=== PATIENT | male | born 1975 | race Caucasian/White ===

== ENCOUNTER 2017-12-05 17:22 | Emergency (ER) | payer SELFPAY ==
[2017-12-05] MEDS ORDERED: IBUPROFEN 400 MG TABLET PO ONE (18:15)
--- NOTE | 2017-12-05 18:18 | Emergency Department Record ---
History of Present Illness - General Chief complaint: Flu Like Symptoms Stated complaint: FLU Time Seen by Provider: 12/05/17 18:10 Source: Patient Mode of Arrival: Ambulatory Limitations: No limitations - History of Present Illness Initial comments: 42 yo male presents to ED of revaluation of fevers, runny nose, myalgias, and non-productive cough symptoms for the past 4 days. Patient reports intermittently taking Tylenol and Ibuprofen for his symptoms with some improvement. Patient denies any know recent ill contacts, denies health problems at his baseline. MD Complaint: Generalized weakness Onset/Timin -: Days(s) Severity: Mild Severity scale (1-10): 9 Quality: Aching Consistency: Intermittent Improves with: Rest Worsens with: Other Associated Symptoms: Fever/chills, Headaches - [place] Coma Scale Eye Response: (4) Open spontaneously Motor Response: (6) Obeys commands Verbal Response: (5) Oriented Amarjit Total: 15 - Related Data Previous Rx's Medication Instructions Recorded Oseltamivir Phosphate [Tamiflu] 75 mg PO BID #10 capsule 12/05/17 Allergies Allergy/AdvReac Type Severity Reaction Status Date / Time No Known Drug Allergies Allergy Verified 12/05/17 17:46 Travel Screening - Travel/Exposure Within Last 30 Days Have you traveled within the last 30 days?: No Review of Systems Constitutional: Reports: Chills, Fever, Malaise. Denies: Night sweats Eyes: Reports: Eye discharge. Denies: Photophobia ENT: Reports: Congestion. Denies: Ear pain, Epistaxis Respiratory: Reports: Cough. Denies: Dyspnea Cardiovascular: Denies: Chest pain, Dyspnea on exertion Endocrine: Reports: Fatigue. Denies: Heat or cold intolerance Gastrointestinal: Denies: Nausea, Vomiting Genitourinary: Denies: Incontinence, Retention Musculoskeletal: Reports: Back pain, Myalgia. Denies: Arthralgia Skin: Denies: Bruising, Change in color Neurological: Reports: Headache. Denies: Abnormal gait, Confusion Psychiatric: Denies: Anxiety Hematological/Lymphatic: Denies: Anemia, Blood Clots Past Medical History - SOCIAL HISTORY Smoking Status: Never smoker Alcohol Use: Occasional Drug Use: None - RESPIRATORY Hx Respiratory Disorders: No - CARDIOVASCULAR Hx Cardio Disorders: No - NEURO Hx Neuro Disorders: No - GI Hx GI Disorders: No - Hx Genitourinary Disorders: No - ENDOCRINE Hx Endocrine Disorders: No - MUSCULOSKELETAL Hx Musculoskeletal Disorders: No - PSYCH Hx Psych Problems: No - HEMATOLOGY/ONCOLOGY Hx Hematology/Oncology Disorders: No Family Medical History Any Significant Family History?: Yes Hx Heart Disease: Mother Hx HTN: Father, Mother Physical Exam - General General Appearance: Alert, Oriented x3, Cooperative, Moderate distress Limitations: No limitations - Head Head exam: Atraumatic, Normocephalic, Normal inspection Head exam detail: negative: Abrasion, Contusion, Miller's sign, General tenderness, Hematoma, Laceration - Eye Eye exam: Normal appearance, Conjunctival injection. negative: Periorbital swelling, Periorbital tenderness, Scleral icterus - ENT Ear exam: negative: Auricular hematoma, Auricular trauma Mouth exam: negative: Drooling, Laceration, Muffled voice, Tongue elevation Throat exam: negative: Tonsillar erythema, Tonsillomegaly, R peritonsillar mass , L peritonsillar mass - Neck Neck exam: Normal inspection. negative: Meningismus, Tenderness - Respiratory Respiratory exam: Normal lung sounds bilaterally. negative: Respiratory distress, Rhonchi, Stridor, Wheezes - Cardiovascular Cardiovascular Exam: Regular rate, Normal rhythm, Normal heart sounds - GI/Abdominal GI/Abdominal exam: Soft. negative: Rebound, Rigid, Tenderness - Rectal Rectal exam: Deferred - exam: Deferred - Extremities Extremities exam: Normal inspection. negative: Calf tenderness, Pedal edema, Tenderness - Back Back exam: Denies: CVA tenderness (R), CVA tenderness (L) - Neurological Neurological exam: Alert, Normal gait, Oriented X3 - Psychiatric Psychiatric exam: Normal affect, Normal mood - Skin Skin exam: Normal color. negative: Abrasion Type of lesion: negative: abrasion Course Vital Signs 12/05/17 17:44 Temperature 100.1 F H Pulse Rate [ 95 H Pulse Ox Probe] Respiratory 20 Rate Blood Pressure 181/109 [Left Arm] Pulse Ox 96 - Reevaluation(s) Reevaluation #1: 12/05/17 18:42 Patient is positive for influenza A, will initiate Tamiflu at this time. Patient was counseled re: influenza and symptomatic care at home, appears stable for discharge with outpatient treatment for influenza. Patient was also counseled re: follow-up for elevated blood pressure in 5-7 days as directed as well. Disposition Disposition: Discharge Clinical Impression: Influenza A Disposition: Home, Self-Care Condition: (2) Stable Instructions: Influenza (ED) Additional Instructions: Return to ED if your symptoms worsen or if you have any concerns. Tamiflu as directed. Tylenol/Motrin as needed for fever/body aches. Follow-up with your family doctor in 3-5 days as directed. Prescriptions: Oseltamivir Phosphate [Tamiflu] 75 mg PO BID #10 capsule Forms: Patient Portal Access Time of Disposition: 18:44 Quality - Quality Measures Quality Measures: N/A - Blood Pressure Screening Does Patient Have Any of the Following: Active Dx of HTN Blood Pressure Classification: Hypertensive Reading Systolic Measurement: 172 Diastolic Measurement: 113 Screening for High Blood Pressure: Patient Exclusion, Hx of HTN [G9744]
[2017-12-05 18:34] LABS: INFLUENZA A POSITIVE (NEGATIVE); INFLUENZA B NEGATIVE (NEGATIVE)
[2017-12-05] MEDS ORDERED: OSTELTAMIVIR 75 MG CAP PO ONE (18:44)
== END 2017-12-05 19:02 | disposition home or self-care (01) ==
LOC: ER 17:22
DX: J10.1 Influenza due to other identified influenza virus with other respiratory manifestations (principal); R03.0 Elevated blood-pressure reading, without diagnosis of hypertension; R53.1 Weakness
CPT/HCPCS: 87400; 99282

== ENCOUNTER 2018-01-25 05:00 | Emergency (ER) | payer SELFPAY ==
[2018-01-25] MEDS ORDERED: HYDROCODONE/APAP 7.5/325MG TABLET PO ONE (05:06)
[2018-01-25] MEDS ORDERED: CYCLOBENZAPRINE 10MG TABLET PO ONE (05:06)
[2018-01-25] MEDS ORDERED: METHYLPREDNISOLONE 80MG/VIAL IM ONE (05:06)
--- NOTE | 2018-01-25 05:13 | Emergency Department Record ---
History of Present Illness - General Stated complaint: R HIP PAIN Time Seen by Provider: 01/25/18 05:06 Source: Patient, Family Mode of Arrival: Ambulatory Limitations: No limitations - History of Present Illness Initial comments: 42 yo male presents with right hip pain for 2 days. He states the pain is sharp and radiates to the knee. It is sharp. It is worse with movements and weight bearing. He states he did yard work on and initially developed lumbar pain that know is in the right hip with occasional radiation to the knee. No falls. No swelling. No rash. No fevers or chills. No prior right hip disease. No current PCP but he has his first appointment in 1.5 weeks with a new doctor in the [facility]. He normally gets up at this hour for work but the pain was too severe. No weakness or numbness. MD Complaint: Joint pain -: Days(s) (2) Location: Right, Other (hip) History of Same: No -: Yes Arthralgia Radiation: Proximal Quality: Aching Consistency: Constant Improves with: Immobilization Worsens with: Palpation, Walking Associated Symptoms: Denies other symptoms - Related Data Home Medications Medication Instructions Recorded Confirmed Last Taken Amoxicillin 500 mg PO TID 01/25/18 01/25/18 Unknown Previous Rx's Medication Instructions Recorded Cyclobenzaprine HCl [Flexeril] 10 mg PO TID #20 tablet 01/25/18 Hydrochlorothiazide [Hctz] 25 mg PO DAILY #14 tablet 01/25/18 Hydrocodone/Acetaminophen [[place] 1 each PO Q8H #9 tablet 01/25/18 5-325 Tablet] Allergies Allergy/AdvReac Type Severity Reaction Status Date / Time No Known Drug Allergies Allergy Verified 12/05/17 17:46 Review of Systems Constitutional: Denies: Chills, Fever, Malaise, Weakness Eyes: Denies: Eye discharge, Eye pain ENT: Denies: Congestion, Throat pain Respiratory: Denies: Cough Cardiovascular: Denies: Chest pain, Syncope Endocrine: Denies: Fatigue Gastrointestinal: Denies: Abdominal pain, Diarrhea, Nausea, Vomiting Genitourinary: Denies: Dysuria, Frequency, Hematuria Musculoskeletal: Reports: As per HPI, Arthralgia, Back pain, Myalgia. Denies: Joint swelling, Neck pain Skin: Denies: Bruising, Change in color, Rash Neurological: Denies: Abnormal gait, Headache, Numbness, Tingling, Weakness Psychiatric: Denies: Anxiety Hematological/Lymphatic: Denies: Easy bleeding, Easy bruising, Swollen glands Past Medical History - SOCIAL HISTORY Smoking Status: Never smoker Drug Use: None - RESPIRATORY Hx Respiratory Disorders: No - CARDIOVASCULAR Hx Cardio Disorders: No - NEURO Hx Neuro Disorders: No - GI Hx GI Disorders: No - Hx Genitourinary Disorders: No - ENDOCRINE Hx Endocrine Disorders: No - MUSCULOSKELETAL Hx Musculoskeletal Disorders: No - PSYCH Hx Psych Problems: No - HEMATOLOGY/ONCOLOGY Hx Hematology/Oncology Disorders: No Family Medical History Hx Heart Disease: Mother Hx HTN: Father, Mother Physical Exam - General General Appearance: Alert, Oriented x3, Cooperative, No acute distress Limitations: No limitations - Head Head exam: Normal inspection - Eye Eye exam: Normal appearance. negative: Conjunctival injection, Scleral icterus - ENT ENT exam: Normal exam Ear exam: Normal external inspection Nasal Exam: Normal inspection Mouth exam: Normal external inspection - Neck Neck exam: Normal inspection, Full ROM. negative: Tenderness - Respiratory Respiratory exam: Normal lung sounds bilaterally. negative: Respiratory distress - Cardiovascular Cardiovascular Exam: Regular rate, Normal rhythm, Normal heart sounds - GI/Abdominal GI/Abdominal exam: Soft, Normal bowel sounds. negative: Pulsatile mass ( abdoomen is obese but very soft and non tender), Tenderness - Rectal Rectal exam: Deferred - exam: Deferred - Extremities Extremities exam: Normal inspection, Full ROM, Normal capillary refill, Tenderness (tenderness to the lateral hip and glutteal area on the right, no pain with log roll of the hip. He has nearly full hip flexion before pain, pain with external rotation), Other. negative: Calf tenderness, Pedal edema - Back Back exam: Reports: Normal inspection, Full ROM, Tenderness, Vertebral tenderness. Denies: CVA tenderness (R), CVA tenderness (L), Muscle spasm, Paraspinal tenderness - Neurological Neurological exam: Alert, Normal gait, Oriented X3, Reflexes normal. negative: Abnormal gait, Altered, Motor sensory deficit - Psychiatric Psychiatric exam: Normal affect, Normal mood - Skin Skin exam: Dry, Intact, Normal color, Warm Course - Reevaluation(s) Reevaluation #1: The examination is consistent with musculo skeletal. The patient is comfortable if still and certain maneuvers reproduce the pain ( external rotation, hip flexion) 01/25/18 05:16 XR ordered for the right hip pain 01/25/18 05:37 The XR was reviewed. Mild joint space narrowing. No fracture. The patient reports he has not been on BP medication for about 3 years. He does not recall his prior medications He will be placed on HCTZ for 10 days until seen for his first appointment with [facility]. He is asymptomatic regarding his HTN. He was diagnosed many years ago but has not been compliant with medications 01/25/18 05:43 We discussed his BP and starting medication for the 10 days until followup Off work today to rest the sore right hip 01/25/18 06:00 Disposition Disposition: Discharge Clinical Impression: Right hip pain, SI joint arthritis, Hypertension Disposition: Home, Self-Care Condition: (1) Good Instructions: Hip Sprain (ED), Hypertension (ED) Additional Instructions: Follow up with [facility] as scheduled on the or be seen sooner if worse or any new concerns Take the blood pressure medication until your appointment with your new family doctor Prescriptions: Cyclobenzaprine HCl [Flexeril] 10 mg PO TID #20 tablet Hydrochlorothiazide [Hctz] 25 mg PO DAILY #14 tablet Hydrocodone/Acetaminophen [[place] 5-325 Tablet] 1 each PO Q8H #9 tablet Forms: Patient Portal Access Time of Disposition: 05:40 Quality - Quality Measures Quality Measures: N/A - Blood Pressure Screening Does Patient Have Any of the Following: Active Dx of HTN Blood Pressure Classification: Hypertensive Reading Systolic Measurement: 185 Diastolic Measurement: 114 Screening for High Blood Pressure: Patient Exclusion, Hx of HTN [G9744]
--- NOTE | 2018-01-25 10:40 | RADIOLOGY REPORT ---
EXAM: RIGHT HIP WITH AP PELVIS HISTORY: RIGHT HIP PAIN STARTING TWO DAYS AGO WHILE RAKING LEAVES. TECHNIQUE: An AP view of the pelvis and AP and lateral views of the right hip were obtained. Comparison: None. FINDINGS: The right hip appears intact with no fracture or dislocation seen. The joint space appears maintained. No destructive lesion identified. IMPRESSION: THE RIGHT HIP APPEARS NEGATIVE. JOB NUMBER: [id number] MTDD
== END 2018-01-25 05:58 | disposition home or self-care (01) ==
LOC: ER 05:00
DX: M47.898 Other spondylosis, sacral and sacrococcygeal region (principal); M25.551 Pain in right hip; M25.561 Pain in right knee; I10 Essential (primary) hypertension
CPT/HCPCS: 96372; 99283; 99284; J1040

== ENCOUNTER 2018-01-26 11:22 | Emergency (ER) | payer SELFPAY ==
[2018-01-26] MEDS ORDERED: ORPHENADRINE CITRATE 60MG/2ML VIAL IM ONE (11:45)
--- NOTE | 2018-01-26 11:49 | Emergency Department Record ---
History of Present Illness - General Chief complaint: Extremity Problem Stated complaint: PAIN AND NUMBNESS FROM HIP TO FOOT Time Seen by Provider: 01/26/18 11:26 Source: Patient Mode of Arrival: Ambulatory Limitations: No limitations - History of Present Illness Initial comments: The patient is here due to worsening of his R hip and back pain. The onset was 3 days ago. The pain originally started at the posterior R hip near the SI joint and travelled to his R knee. The patient was seen in the ER yesterday for it and started on pain medicines. Now for the last 24 hours or so the pain is traveling down the R leg to the foot and he is having mild numbness to the anterior R lower leg. He denies any weakness to his legs and has had no bowel or bladder issues. The patient also denies any OGDEN, CP, SOB, or MAGO. MD Complaint: Other Onset/Timin -: Days(s) Location: Left, Lower Leg Radiation: Distal Severity scale (1-10): 10 Quality: Aching, Crushing Associated Symptoms: Denies other symptoms - Related Data Previous Rx's Medication Instructions Recorded Cyclobenzaprine HCl [Flexeril] 10 mg PO TID #20 tablet 01/25/18 Hydrochlorothiazide [Hctz] 25 mg PO DAILY #14 tablet 01/25/18 Hydrocodone/Acetaminophen [[place] 1 each PO Q8H #9 tablet 01/25/18 5-325 Tablet] Naproxen [Naprosyn] 500 mg PO BID #14 tablet. 01/26/18 Allergies Allergy/AdvReac Type Severity Reaction Status Date / Time No Known Drug Allergies Allergy Verified 01/26/18 11:36 Travel Screening - Travel/Exposure Within Last 30 Days Have you traveled within the last 30 days?: No - Travel/Exposure Within Last Year Have you traveled outside the [place] in the last year?: No - Additonal Travel Details Have you been exposed to anyone with a communicable illness?: No - Travel Symptoms Symptom Screening: None Review of Systems Constitutional: Denies: Chills, Fever Eyes: Denies: Eye discharge ENT: Denies: Congestion Respiratory: Denies: Cough, Dyspnea Past Medical History - SOCIAL HISTORY Smoking Status: Never smoker Alcohol Use: None Drug Use: None - RESPIRATORY Hx Respiratory Disorders: No - CARDIOVASCULAR Hx Cardio Disorders: No Hx Hypertension: Yes - NEURO Hx Neuro Disorders: No - GI Hx GI Disorders: No - Hx Genitourinary Disorders: No - ENDOCRINE Hx Endocrine Disorders: No - MUSCULOSKELETAL Hx Musculoskeletal Disorders: No - PSYCH Hx Psych Problems: No - HEMATOLOGY/ONCOLOGY Hx Hematology/Oncology Disorders: No Family Medical History Any Significant Family History?: Yes Hx Heart Disease: Mother Hx HTN: Father, Mother Physical Exam - General General Appearance: Alert, Oriented x3, Cooperative, No acute distress - Head Head exam: Atraumatic, Normocephalic, Normal inspection - Eye Eye exam: Normal appearance, PERRL - Neck Neck exam: Normal inspection, Full ROM. negative: Tenderness - Respiratory Respiratory exam: Normal lung sounds bilaterally. negative: Respiratory distress - Cardiovascular Cardiovascular Exam: Regular rate, Normal rhythm, Normal heart sounds - GI/Abdominal GI/Abdominal exam: Soft, Normal bowel sounds. negative: Tenderness - Rectal Rectal exam: Normal rectal tone - Extremities Extremities exam: Normal inspection, Full ROM, Normal capillary refill, Other ( Neg SLR bilaterally.). negative: Tenderness - Neurological Neurological exam: Abnormal gait (The patient is able to walk but is limping mildly on the R leg due to pain.), Alert, Motor sensory deficit (The motor exam is 5/5 and equal to the bilateral lower legs but the sensory exam is decreased to the anteror R lower leg only. The patient is able to get up and walk on his toes and stand on his heels.), Oriented X3, Reflexes normal (The patellar and achilles reflexes are 2+ and equal bilaterally.). negative: Normal gait Course Vital Signs 01/26/18 11:30 Temperature 97.8 F Pulse Rate 92 H Respiratory 20 Rate Blood Pressure 189/120 Pulse Ox 97 - Reevaluation(s) Reevaluation #1: The patient is doing better at this time. He is still having pain but it is much improved along with his BP. He is up walking easily with no limping or leg weakness. I did discuss the lab results and the need for further evaluation by his PCP. 01/26/18 13:55 Medical Decision Making - Data Complexity MDM Data: Labs Ordered and/or Reviewed, X-Ray Ordered and/or Reviewed - Lab Data Result diagrams: 01/26/18 12:00 01/26/18 12:00 - Radiology Data Radiology results: Report reviewed (Lumbar Spine: DJD but no acute changes.) Disposition Disposition: Discharge Clinical Impression: Back pain Qualifiers: Back pain location: back pain in unspecified location Chronicity: acute Back pain laterality: right Qualified Code(s): M54.9 - Dorsalgia, unspecified Disposition: Home, Self-Care Condition: (2) Stable Instructions: Acute Low Back Pain (ED) Additional Instructions: Please continue your present medicines and add the Naprosyn for pain. Please see your PCP next week as planned and return to the ER for any worsening pain, leg weakness, worsening numbness, or ANY bowel or bladder incontinence or inability to go. Prescriptions: Naproxen [Naprosyn] 500 mg PO BID #14 tablet.dr Forms: Patient Portal Access Time of Disposition: 14:00 Quality - Quality Measures Quality Measures: N/A - Blood Pressure Screening View Details: Yes Does Patient Have Any of the Following: Active Dx of HTN Blood Pressure Classification: Hypertensive Reading Systolic Measurement: 189 Diastolic Measurement: 120 Screening for High Blood Pressure: Patient Exclusion, Hx of HTN [G9744]
[2018-01-26 12:16] LABS: BASO % 0.4 % (0-6); EOS % 0.7 % (0-6); GRAN % 71.5 % (47-80); HEMATOCRIT 47.9 % (42.0-52.0); HEMOGLOBIN 16.1 gm/dl (14.0-18.0); LYMPH % 19.4 % (16-45); MEAN CELL VOLUME 91.1 fl (81-97); MEAN CORPUSCULAR HEMOGLOBIN 30.6 pg (27-33); MEAN CORPUSCULAR HGB CONC 33.6 g/dl (32-36); MEAN PLATELET VOLUME 9.2 fl (7.4-10.4); PLATELET COUNT 386 K/uL (130-400); RED BLOOD COUNT 5.26 M/uL (4.40-5.70); RED CELL DISTRIBUTION WIDTH 12.6 % (11.5-14.5); WHITE BLOOD COUNT W/O DIFF 9.4 K/uL (4.2-12.2)
[2018-01-26 12:30] LABS: BLOOD UREA NITROGEN 22 mg/dL (6-20); CREATININE 0.8 mg/dL (0.7-1.2); EST GLOMERULAR FILTRATION RATE > 60 mL/min
[2018-01-26 12:32] LABS: GLUCOSE,RANDOM 122 mg/dL (74-109)
[2018-01-26] MEDS ORDERED: KETOROLAC 30 MG/ML VIAL IM ONE (12:36)
[2018-01-26] MEDS ORDERED: ONDANSETRON 4 MG ODT TABLET SL ONE (13:05)
[2018-01-26] MEDS ORDERED: MORPHINE SULFATE 5 MG/ML PFS IM ONE (13:05)
--- NOTE | 2018-01-27 10:45 | RADIOLOGY REPORT ---
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 TECHNIQUE: AP, translumbar lateral, and lumbosacral lateral views for a total of three views of the lumbar spine were obtained. Comparison: None. Encounter: Initial. FINDINGS: Very slight tilting of the lumbar spine to the left which may simply be due to positioning or spasm. Slight narrowing of the fourth and fifth lumbar interspaces with associated hypertrophic spurring. Mild spurring elsewhere in the lumbar spine as well. No fracture of the lumbar spine identified. Mild distention of a single small bowel loop in the left mid abdomen laterally may represent a mild ileus. If there are persistent abdominal symptoms, a follow-up complete abdomen series may be useful to assess for progressive small bowel distention or air fluid level/free air. IMPRESSION: 1. MILD TILTING OF THE LUMBAR SPINE TO THE LEFT. 2. MILD NARROWING OF THE LOWER TWO LUMBAR INTERSPACES WITH MILD SPURRING SCATTERED THROUGHOUT THE LUMBAR SPINE. 3. SINGLE MILDLY DILATED LOOP OF SMALL BOWEL LEFT MID ABDOMEN LATERALLY. JOB NUMBER: [id number] [facility]
== END 2018-01-26 14:04 | disposition home or self-care (01) ==
LOC: ER 11:22
DX: M54.5 Low back pain (principal); M79.661 Pain in right lower leg; R20.0 Anesthesia of skin; I10 Essential (primary) hypertension
CPT/HCPCS: 99283; 96372; 99284; 85025; 80048; 72100; J1885; J2270; J2360